=== PATIENT | female | born 1975 | race Caucasian/White ===

== ENCOUNTER 2024-10-01 13:41 | Emergency (ER) | payer OTHER, SELFPAY ==
[2024-10-01 13:45] VITALS: BP 136/87; PULSE 74; RESP 18; TEMP 36.6; O2SAT 96; BMI 31.9
--- NOTE | 2024-10-01 13:54 | DI.CT.S_ITS ---
PROCEDURE: CT HEAD/BRAIN WO CON INDICATIONS: headache and right side TECHNIQUE: Noncontrast 4.5 mm thick angled axial sections acquired from the foramen magnum to the vertex, with coronal and sagittal reformats. For radiation dose reduction, the following was used: automated exposure control, adjustment of mA and/or kV according to patient size. COMPARISON: None. FINDINGS: Image quality: Diagnostic. CSF spaces: Basal cisterns are patent. No extra-axial fluid collections. Ventricles are normal in size and shape. Brain: No midline shift. No intracranial masses or hemorrhage. Siegel-white matter interface is normal. Skull and face: Calvarium and visualized facial bones are intact, without suspicious lesions. Sinuses: Visualized sinuses and mastoids are clear. IMPRESSION: No acute intracranial pathology. Dictated by: Boris Ramos M.D. on 10/01/2024 at 14:11 Approved by: Boris Ramos M.D. on 10/01/2024 at 14:12
--- NOTE | 2024-10-01 13:56 | EKG_ITS ---
[address] [address] Test Date: 2024-10-01 Pat Name: Krystin Delgado Department: Room: Gender: Female [employer]: BENITO : 1975 Requested By: Order Number: [id number] Reading MD: Juan C Armstrong MD Measurements Intervals [place] Rate: 68 P: 21 NE: 110 QRS: 13 QRSD: 94 T: 20 QT: 382 QTc: 406 Interpretive Statements Sinus rhythm with short NE Electronically Signed On 10-01-2024 14:02:17 PST by Juan C Armstrong MD
--- NOTE | 2024-10-01 13:56 | DI.RAD.S_ITS ---
PROCEDURE: XR CHEST 1V INDICATIONS: chest pain TECHNIQUE: One view of the chest was acquired. COMPARISON: None. FINDINGS: Surgical changes and devices: None. Lungs and pleura: Lungs are clear. No pleural effusions or pneumothorax. Mediastinum: Mediastinal contours appear normal. Heart size is normal. Bones and chest wall: No suspicious bony lesions. Overlying soft tissues appear unremarkable. IMPRESSION: No acute cardiopulmonary abnormality is seen. Dictated by: Boris Ramos M.D. on 10/01/2024 at 14:40 Approved by: Boris Ramos M.D. on 10/01/2024 at 14:40
[2024-10-01 15:01] LABS: Add Manual Diff / Slide Review NO; Basophils Absolute Auto 100 /uL (0-100); Basophils Percent Auto 0.6 % (0-2); Eosinophils Absolute Auto 100 /uL (0-450); Eosinophils Percent Auto 1.2 % (2-4); Hematocrit 48.9 % (36-46); Hemoglobin 16.2 g/dL (12.0-16.0); Lymphocytes Absolute Auto 3700 /uL (1100-4500); Lymphocytes Percent Auto 30.2 % (25-40); Mean Corpuscular HGB Conc 33.1 % (30-36); Mean Corpuscular Hemoglobin 28.7 PG (26-34); Mean Corpuscular Volume 86.8 fL (80-100); Monocytes Absolute Auto 1100 /uL (0-900); Monocytes Percent Auto 9.1 % (3-14); Neutrophils Absolute Auto 7200 /uL (1500-7000); Neutrophils Percent Auto 58.9 % (50-75); Platelet Count 333 X10^3/uL (150-400); Red Blood Cell Count 5.64 X10^6/uL (4.0-5.2); Red Cell Distribution Width 14.6 % (11.6-14.8); White Blood Cell Count 12.1 X10^3/uL (4.5-11.0)
[2024-10-01 15:19] LABS: Alanine Aminotransferase 37 IU/L (<35); Albumin 4.9 g/dL (3.5-5.0); Albumin Globulin Ratio 1.4 (1.0-2.8); Alkaline Phosphatase 98 U/L (38-126); Aspartate Aminotransferase 30 IU/L (14-36); Bilirubin Total 0.4 mg/dL (0.2-1.3); Blood Urea Nitrogen 21 mg/dL (7-17); Carbon Dioxide 27 mmol/L (22-32); Chloride 102 mmol/L (98-107); Creatine Kinase 35 U/L (30-135); Estimated Glomerular Filt Rate > 60 mL/min (>60); Globulin 3.4 g/dL (1.7-4.1); Glucose 84 mg/dL (70-100); HEMOLYSIS < 15 (0-50); Lipase 177 U/L (23-300); Magnesium 2.2 mg/dL (1.6-2.3); Potassium 4.1 mmol/L (3.4-5.1); Sodium 141 mmol/L (137-145); Total Protein 8.3 g/dL (6.3-8.2)
[2024-10-01] MEDS: SODIUM CHLORIDE 0.9% 1,000 ML 1000 ML IV (15:20)
[2024-10-01] MEDS: METOCLOPRAMIDE 10 MG/2 ML INJ IV (15:20)
[2024-10-01] MEDS: KETOROLAC 30 MG/ML VIAL 15 MG IV (15:21)
[2024-10-01] MEDS: diphenhydrAMINE 50 MG/ML VIAL 25 MG IV (15:22)
[2024-10-01 15:31] LABS: Troponin I < 0.012 ng/mL (0.01-0.034)
[2024-10-01] MEDS: ACETAMINOPHEN IV 1,000 MG/100 ML VIAL 400 MG IV (16:06)
--- NOTE | 2024-10-01 16:34 | ED_ITS ---
HPI - Headache <Jyoti Peter PA-C - Last Filed: 10/01/24 16:42> General Chief Complaint: Headache Stated Complaint: migraine, stroke symptoms Time Seen by Provider: 10/01/24 15:39 Mode of arrival: Ambulatory History of Present Illness HPI Narrative: 49-year-old female with past medical history migraine presents to the ED with 2 days of intractable headache. Patient also endorses nausea, vomiting. Patient states that her headache is similar to her prior headaches. Her headache is right frontal. Patient also endorsed brief chest tightness which has since resolved. Patient also endorses that she experienced several minutes of right- sided facial numbness along with a headache. The numbness has since resolved. Patient states that it is not common for her to have numbness with her migraines. However, patient did endorse a prior episode of facial numbness a few months ago which also spontaneously resolved. Related Data Previous Rx's Medication Instructions Recorded sumatriptan succinate 50 mg tablet See Rx Instructions PO .COMPLEX 10/01/24 (Imitrex) #30 tabs Allergies Allergy/AdvReac Type Severity Reaction Status Date / Time hydrocodone [From [place]] AdvReac Vomiting Verified 10/01/24 13:44 Review of Systems <Jyoti Peter PA-C - Last Filed: 10/01/24 16:42> Constitutional Constitutional: Denies chills, Denies fatigue, Denies fever(s), Denies frequent falls, Reports headache(s), Denies lethargy and Denies weakness Eyes Eyes: Denies change in vision, Denies eye discharge, Denies irritation and Denies loss of vision ENT Ears, Nose, Mouth, and Throat: Denies change in voice, Denies dizziness, Reports headache(s), Denies neck pain, Denies sore throat and Denies throat swelling Cardiovascular Cardiovascular: Reports chest pain, Denies irregular heart rhythm, Denies lightheadedness, Denies palpitations, Denies dyspnea, Denies dyspnea on exertion and Denies orthopnea Respiratory Respiratory: Denies cough, Denies dyspnea, Denies dyspnea on exertion and Denies wheezing Gastrointestinal Gastrointestinal: Denies abdominal pain, Denies change in bowel habits, Denies diarrhea, Reports nausea and Reports vomiting Musculoskeletal Musculoskeletal: Denies neck pain and Reports numbness Integumentary/Breasts Skin/Breast: Denies pruritus, Denies erythema, Denies rash and Denies wounds Neurologic Neurologic: Denies behavioral changes, Denies confusion, Denies dizziness, Denies frequent falls, Reports headache(s), Denies loss of vision, Reports numbness and Denies weakness Psychiatric Psychiatric: Denies anxiety, Denies behavioral changes, Denies confusion, Denies depression, Denies homicidal ideation and Denies suicidal ideation Endocrine Endocrine: Denies fatigue, Denies flushing and Denies palpitations Hematologic/Lymphatic Hematologic/Lymphatic: Denies easy bruising Allergic/Immunologic Allergic/Immunologic: Denies urticaria, Denies throat swelling and Denies wheezing Patient History <Jyoti Peter PA-C - Last Filed: 10/01/24 16:42> Social History Smoking Status: Never smoker Smoking Status: Never smoker Exam <Jyoti Peter PA-C - Last Filed: 10/01/24 16:42> Narrative Exam Narrative: Const General:?cooperative, healthy appearing and comfortable [facility] Head:?normal to inspection Ears:?hearing grossly normal bilaterally Nose:?external nose normal Face and sinus:?normal facial exam and sinuses nontender Mouth:?oral mucosae normal Throat:?posterior oropharynx normal Eyes General:?appearance normal, both eyes and all related structures Neck Neck:?normal visual inspection and no lymphadenopathy noted Resp Effort & Inspection:?normal respiratory effort Auscultation:?clear to auscultation bilaterally Cardio Rate:?regular rate Rhythm:?regular rhythm Neuro General:?patient alert, patient awake and patient oriented x3; PERRLA; CN 1 through 12 intact bilaterally; gait is normal; neg [id number] Initial Vital Signs Initial Vital Signs: Vital Signs Temperature 97.8 F 10/01/24 13:45 Pulse Rate 74 10/01/24 13:45 Respiratory Rate 18 10/01/24 13:45 Blood Pressure 136/87 10/01/24 13:45 Pulse Oximetry 96 10/01/24 13:45 Oxygen Delivery Method Room Air 10/01/24 13:45 <Nuria Meneses DO - Last Filed: 10/05/24 12:56> Initial Vital Signs Initial Vital Signs: Vital Signs Temperature 97.8 F 10/01/24 13:45 Pulse Rate 74 10/01/24 13:45 Respiratory Rate 18 10/01/24 13:45 Blood Pressure 136/87 10/01/24 13:45 Pulse Oximetry 96 10/01/24 13:45 Oxygen Delivery Method Room Air 10/01/24 13:45 Course <Jyoti Peter PA-C - Last Filed: 10/01/24 16:42> Orders Ordered: Discontinued Medications Aspirin (Aspirin 81 Mg Chew Tab) 324 mg PO NOW ONE Stop: 10/01/24 13:57 Last Admin: 10/01/24 15:54 Dose: Not Given Documented By: GERARD Diphenhydramine HCl (Diphenhydramine 50 Mg/Ml Vial) 25 mg IV NOW ONE Stop: 10/01/24 13:55 Last Admin: 10/01/24 15:22 Dose: 25 mg Documented By: JESSE Sodium Chloride (Normal Saline 0.9%) 1,000 mls @ 1,000 mls/hr IV BOLUS ONE Stop: 10/01/24 14:53 Last Infusion: 10/01/24 16:41 Dose: Infused Documented By: Admin: 10/01/24 15:20 Dose: 1,000 mls/hr Documented By: JESSE Acetaminophen (Ofirmev) 1,000 mg in 100 mls @ 400 mls/hr IV NOW ONE Stop: 10/01/24 15:53 Last Infusion: 10/01/24 16:41 Dose: Infused Documented By: Admin: 10/01/24 16:06 Dose: 400 mls/hr Documented By: GERARD Ketorolac Tromethamine (Ketorolac 30 Mg/Ml Vial) 15 mg IV NOW ONE Stop: 10/01/24 13:55 Last Admin: 10/01/24 15:21 Dose: 15 mg Documented By: JESSE Metoclopramide HCl (Metoclopramide 10 Mg/2 Ml Inj) 10 mg IV NOW ONE Stop: 10/01/24 13:55 Last Admin: 10/01/24 15:20 Dose: 10 mg Documented By: JESSE Vital Signs Vital signs: Vital Signs - 8 hr 10/01/24 13:45 Temperature 97.8 F Pulse Rate 74 Respiratory Rate 18 Blood Pressure 136/87 Pulse Oximetry 96 Oxygen Delivery Method Room Air <Nuria Meneses DO - Last Filed: 10/05/24 12:56> Orders Ordered: Discontinued Medications Aspirin (Aspirin 81 Mg Chew Tab) 324 mg PO NOW ONE Stop: 10/01/24 13:57 Last Admin: 10/01/24 15:54 Dose: Not Given Documented By: GERARD Diphenhydramine HCl (Diphenhydramine 50 Mg/Ml Vial) 25 mg IV NOW ONE Stop: 10/01/24 13:55 Last Admin: 10/01/24 15:22 Dose: 25 mg Documented By: JESSE Sodium Chloride (Normal Saline 0.9%) 1,000 mls @ 1,000 mls/hr IV BOLUS ONE Stop: 10/01/24 14:53 Last Infusion: 10/01/24 16:41 Dose: Infused Documented By: Admin: 10/01/24 15:20 Dose: 1,000 mls/hr Documented By: JESSE Acetaminophen (Ofirmev) 1,000 mg in 100 mls @ 400 mls/hr IV NOW ONE Stop: 10/01/24 15:53 Last Infusion: 10/01/24 16:41 Dose: Infused Documented By: Admin: 10/01/24 16:06 Dose: 400 mls/hr Documented By: GERARD Ketorolac Tromethamine (Ketorolac 30 Mg/Ml Vial) 15 mg IV NOW ONE Stop: 10/01/24 13:55 Last Admin: 10/01/24 15:21 Dose: 15 mg Documented By: JESSE Metoclopramide HCl (Metoclopramide 10 Mg/2 Ml Inj) 10 mg IV NOW ONE Stop: 10/01/24 13:55 Last Admin: 10/01/24 15:20 Dose: 10 mg Documented By: JESSE Vital Signs Vital signs: Vital Signs - 8 hr 10/01/24 13:45 Temperature 97.8 F Pulse Rate 74 Respiratory Rate 18 Blood Pressure 136/87 Pulse Oximetry 96 Oxygen Delivery Method Room Air MDM - Headache <Jyoti Peter PA-C - Last Filed: 10/01/24 16:42> Lab Data 10/01/24 14:52 10/01/24 14:52 Labs: Lab Results 10/01/24 10/01/24 10/01/24 Range/Units 14:52 14:52 14:52 WBC 12.1 H (4.5-11.0) X10^3/uL RBC 5.64 H (4.0-5.2) X10^6/uL Hgb 16.2 H (12.0-16.0) g/dL Hct 48.9 H (36-46) % MCV 86.8 (80-100) fL MCH 28.7 (26-34) PG MCHC 33.1 (30-36) % RDW 14.6 (11.6-14.8) % Plt Count 333 (150-400) X10^3/uL Neut % (Auto) 58.9 (50-75) % Lymph % (Auto) 30.2 (25-40) % [place] % (Auto) 9.1 (3-14) % Eos % (Auto) 1.2 L (2-4) % Baso % (Auto) 0.6 (0-2) % Neut # (Auto) 7200 H (7920-8713) /uL Lymph # (Auto) 3700 (5126-3789) /uL [place] # (Auto) 1100 H (0-900) /uL Eos # (Auto) 100 (0-450) /uL Baso # (Auto) 100 (0-100) /uL Sodium 141 (137-145) mmol/L Potassium 4.1 (3.4-5.1) mmol/L Chloride 102 (98-107) mmol/L Carbon Dioxide 27 (22-32) mmol/L BUN 21 H (7-17) mg/dL Creatinine 1.00 0.99 (0.52-1.04) mg/dL Estimated GFR > 60 > 60 (>60) mL/min BUN/Creatinine Ratio 21.0 (6-22) Glucose 84 (70-100) mg/dL Calcium 10.0 (8.4-10.2) mg/dL Magnesium 2.2 (1.6-2.3) mg/dL Total Bilirubin 0.4 (0.2-1.3) mg/dL AST 30 (14-36) IU/L ALT 37 H (<35) IU/L Alkaline Phosphatase 98 (38-126) U/L Total Creatine Kinase 35 (30-135) U/L Troponin I < 0.012 (0.01-0.034) ng/mL Total Protein 8.3 H (6.3-8.2) g/dL Albumin 4.9 (3.5-5.0) g/dL Globulin 3.4 (1.7-4.1) g/dL Albumin/Globulin Ratio 1.4 (1.0-2.8) Lipase 177 (23-300) U/L MDM Narrative Medical decision making narrative: 49-year-old female with past medical history migraine presents to the ED with 2 days of intractable headache. Patient is neurologically intact. Patient's symptoms most consistent with a migraine. Workup was unremarkable. CT head with no acute intracranial pathology. EKG without acute ST-T changes, short [place] interval. Chest x-ray with no acute cardiopulmonary abnormality. Labs within normal limits. Troponin within normal limits. Patient was given IV fluids, Tylenol, ketorolac, Reglan, Benadryl. Patient responded well to medications. Patient states she had been taking Imitrex with the onset of migraines, however since she has moved recently, she is out of it. Prescribed a short-term supply of Imitrex until patient can establish with a PCP. ED return precautions discussed with patient. Patient verbalized understanding. Medical records reviewed: Yes <Nuria Meneses, - Last Filed: 10/05/24 12:56> Lab Data Labs: Lab Results 10/01/24 10/01/24 10/01/24 Range/Units 14:52 14:52 14:52 WBC 12.1 H (4.5-11.0) X10^3/uL RBC 5.64 H (4.0-5.2) X10^6/uL Hgb 16.2 H (12.0-16.0) g/dL Hct 48.9 H (36-46) % MCV 86.8 (80-100) fL MCH 28.7 (26-34) PG MCHC 33.1 (30-36) % RDW 14.6 (11.6-14.8) % Plt Count 333 (150-400) X10^3/uL Neut % (Auto) 58.9 (50-75) % Lymph % (Auto) 30.2 (25-40) % [place] % (Auto) 9.1 (3-14) % Eos % (Auto) 1.2 L (2-4) % Baso % (Auto) 0.6 (0-2) % Neut # (Auto) 7200 H (4655-3131) /uL Lymph # (Auto) 3700 (7711-5606) /uL [place] # (Auto) 1100 H (0-900) /uL Eos # (Auto) 100 (0-450) /uL Baso # (Auto) 100 (0-100) /uL Sodium 141 (137-145) mmol/L Potassium 4.1 (3.4-5.1) mmol/L Chloride 102 (98-107) mmol/L Carbon Dioxide 27 (22-32) mmol/L BUN 21 H (7-17) mg/dL Creatinine 1.00 0.99 (0.52-1.04) mg/dL Estimated GFR > 60 > 60 (>60) mL/min BUN/Creatinine Ratio 21.0 (6-22) Glucose 84 (70-100) mg/dL Calcium 10.0 (8.4-10.2) mg/dL Magnesium 2.2 (1.6-2.3) mg/dL Total Bilirubin 0.4 (0.2-1.3) mg/dL AST 30 (14-36) IU/L ALT 37 H (<35) IU/L Alkaline Phosphatase 98 (38-126) U/L Total Creatine Kinase 35 (30-135) U/L Troponin I < 0.012 (0.01-0.034) ng/mL Total Protein 8.3 H (6.3-8.2) g/dL Albumin 4.9 (3.5-5.0) g/dL Globulin 3.4 (1.7-4.1) g/dL Albumin/Globulin Ratio 1.4 (1.0-2.8) Lipase 177 (23-300) U/L Discharge Plan Departure Patient Disposition: Home Clinical Impression: Migraine Qualifiers: Migraine type: unspecified Status migrainosus presence: without status migrainosus Intractability: not intractable Qualified Code(s): G43.909 - Migraine, unspecified, not intractable, without status migrainosus Instructions: DI for Migraine Activity Restrictions/Additional Instructions: Were evaluated in the ED today for a headache. It appears that you have had an episode of migraine. Your symptoms improved with medications. You have been prescribed Imitrex to take in the event that you have another migraine. Please follow-up with your PCP as soon as possible. Return to the ED if you have worsening symptoms. Prescriptions: New sumatriptan succinate [Imitrex] 50 mg tablet See Rx Instructions .ROUTE .COMPLEX Qty: 30 0RF Rx Instructions: take 1 tab at onset of headache; if no relief may repeat 1 tab after at least 2 hrs; max = 4 tabs/24 hr Referrals: Miscellaneous,Doctor, MD [Primary Care Provider] - Stand Alone Forms: Patient Portal/API/Survey ED Sign-out <Nuria Meneses DO - Last Filed: 10/05/24 12:56> Cosign ED Attending Cosignature Attestation: I was available for consultation.
[2024-10-01 16:43] VITALS: BP 113/75; PULSE 62; RESP 18; O2SAT 98
== END 2024-10-01 16:44 | disposition home or self-care (01) ==
PROVIDERS: Emergency Medicine; Emergency Provider Student in an Organized Health Care Education/Training Program
DX: G43.909 Migraine, unspecified, not intractable, without status migrainosus (principal); R11.2 Nausea with vomiting, unspecified
CPT/HCPCS: 36415; 70450; 71045; 80053; 82550; 82565; 83690; 83735; 84484; 85025; 93005; 93010; 96365; 96375; 99284; J0131; J1200; J1885; J2765

== ENCOUNTER 2025-02-21 18:42 | Emergency (ER) | payer OTHER, SELFPAY ==
[2025-02-21 18:48] VITALS: BP 137/81; PULSE 94; RESP 16; TEMP 36.7; O2SAT 98; BMI 32.3
--- NOTE | 2025-02-21 19:29 | ED.SKABFB ---
HPI - Skin/Abscess/Foreign Bdy General Chief complaint: Skin/Abscess/Foreign Body Stated complaint: Spider bite swelling back of the neck Time Seen by Provider: 02/21/25 19:01 Source: patient Mode of arrival: Ambulatory Limitations: no limitations History of Present Illness HPI narrative: 49-year-old female with no significant past medical history was bitten by something yesterday unsure but thinks it was a spider painful with movement and becoming more red and swollen. She did not do anything for it prior to arrival here today. Other than what is stated 14 point review of system is negative. Related Data Previous Rx's ?Medication ?Instructions ?Recorded sumatriptan succinate 50 mg tablet See Rx Instructions PO .COMPLEX 10/01/24 (Imitrex) #30 tabs diclofenac sodium 75 mg 75 mg PO BID PRN pain #30 tabs 02/21/25 tablet,delayed release sulfamethoxazole 800 1 tab PO Q12H #14 tabs 02/21/25 mg-trimethoprim 160 mg tablet (Bactrim DS) Allergies Allergy/AdvReac Type Severity Reaction Status Date / Time hydrocodone (From [place]) AdvReac Vomiting Verified 02/21/25 18:48 Review of Systems Review of Systems ROS Unobtainable: All systems reviewed & are unremarkable except as noted in HPI and below Exam Narrative Exam Narrative: GENERAL: [83] year old patient appears stated age. Well-developed patient, in mild distress. HEAD: Atraumatic. Normocephalic. EYES: Pupils equal round and reactive. Extraocular motions intact. No scleral icterus. No injection or drainage. NECK: Trachea midline. small pea size abscess no fluctuance with surrounding cellulitis / no active drainage or bleeding BACK: Nontender without deformity or crepitance. No flank tenderness. NEURO: AOx3. SKIN: No rash or erythema of visible areas Initial Vital Signs Initial Vital Signs: Vital Signs Temperature 98.1 F 02/21/25 18:48 Pulse Rate 94 H 02/21/25 18:48 Respiratory Rate 16 02/21/25 18:48 Blood Pressure 137/81 02/21/25 18:48 Pulse Oximetry 98 02/21/25 18:48 Oxygen Delivery Method Room Air 02/21/25 18:48 Course Vital Signs Vital signs: Vital Signs - 8 hr 02/21/25 18:48 Temperature 98.1 F Pulse Rate 94 H Respiratory Rate 16 Blood Pressure 137/81 Pulse Oximetry 98 Oxygen Delivery Method Room Air MDM - Skin/Abscess/Foreign Bdy MDM Narrative Medical decision making narrative: Vital signs, nurse triage note, medication list, previous ER visits, and all imaging studies reviewed. Patient given ibuprofen [place] and Bactrim. DC home on Bactrim and diclofenac. Differential diagnosis , insect bite, MRSA, cellulitis, abscess. Told patient to apply hot compresses to affected area. And potentially return for re-evaluation potential incision and drainage. Discharge Plan Departure Patient Disposition: Home Clinical Impression: Abscess of skin or subcutaneous tissue Instructions: DI for Skin Abscess Activity Restrictions/Additional Instructions: Return with new or worsening symptoms. Take your medicines as directed. Hot compress to affected area. Follow up in 2 3 days for re-evaluation with PCP, walk-in clinic, or ER. Prescriptions: New sulfamethoxazole-trimethoprim [Bactrim DS] 800-160 mg tablet 1 tab PO Q12H Qty: 14 0RF diclofenac sodium 75 mg tablet,delayed release (DR/EC) 75 mg PO BID PRN (Reason: pain) Qty: 30 0RF No Action sumatriptan succinate [Imitrex] 50 mg tablet See Rx Instructions .ROUTE .COMPLEX Qty: 30 0RF Rx Instructions: take 1 tab at onset of headache; if no relief may repeat 1 tab after at least 2 hrs; max = 4 tabs/24 hr Referrals: Miscellaneous,Doctor, MD [Primary Care Provider, Medical] Stand Alone Forms: Patient Portal/API
[2025-02-21] MEDS: IBUPROFEN 400 MG TABLET 800 MG PO (19:45)
[2025-02-21 19:46] VITALS: BP 133/85; PULSE 84; RESP 15; O2SAT 99
[2025-02-21] MEDS: TRIMETH/SULFA 160/800 (DS) TABLET 1 TAB PO (19:46)
[2025-02-21] MEDS: HYDROCODONE/ACET 5/325 TABLET 1 TAB PO (19:46)
== END 2025-02-21 19:47 | disposition home or self-care (01) ==
PROVIDERS: Emergency Provider Family Medicine
DX: L02.11 Cutaneous abscess of neck (principal)
CPT/HCPCS: 99283